=== PATIENT | female | born 1975 | race Caucasian/White ===

== ENCOUNTER → 2019-03-02 09:06 | Outpatient (CLI) | payer OTHER ==
[2014-06-21 13:32] VITALS: BMI 29.1
[~2019-03-02 09:06] MED LIST: CALCIUM PO; COPPER PO; MULTIPLE VITAMI1 TA1 PO; VITAMIN D5000 UNIT PO; VIVA DHA PRENAT1 CAP PO; ZINC-220220 MG PO
== END | disposition home or self-care (01) ==
LOC: D.CT 09:06
PROVIDERS: ATTEND Family Medicine
DX: I73.9 Peripheral vascular disease, unspecified (principal)